=== PATIENT | male | born 1965 | race Caucasian/White ===

== ENCOUNTER 2016-11-19 12:10 | Inpatient (IN) | payer OTHER ==
[~2016-11-19 12:10] MED LIST: ACIDOPHILUS LA1 EACH PO; BENTYL20 MG PO; CARAFATE1 GM PO; CATAPRES0.1 MG PO; CYCLOBENZAPRIN7.5 MG PO; CYCLOBENZAPRINE10 MG PO; CYMBALTA60 MG PO; DIFLUCAN100 MG PO; DIFLUCAN200 MG PO; GABAPENTIN600 MG PO; GLUCOSE TEST S1 EACH ID; HUMALOG100 UNIT/1 SQ; HUMULIN R100 UNIT/1 SC; HUMULIN R100 UNIT/1 SQ; LANTUS100 UNIT/1 SC; LANTUS100 UNIT/1 SQ; LEVAQUIN750 MG PO; LOFIBRA54 MG PO; LORTAB 5-325 M1 EACH PO; METOCLOPRAMIDE10 MG PO; MOBIC15 MG PO; NEURONTIN600 MG PO; NOVOLIN 70100 UNIT/1 SQ; NOVOLIN R100 UNIT/1 SQ; OMEPRAZOLE20 MG PO; PHENERGAN25 M1 PO; PHENERGAN25 MG RC; PRILOSEC OTC20 MG PO; PROTONIX40 MG PO; REGLAN10 MG PO; TYLENOL325 MG PO; VASOTEC10 MG PO; VASOTEC2.5 MG PO; VASOTEC5 MG PO; VISTARIL25 MG PO; ZOFRAN4 MG PO
--- NOTE | 2016-11-20 03:23 | NUR ---
0200 changes to 0300 due to time seasonal time change.
--- NOTE | 2016-11-21 13:03 | NUR ---
0815- HERE TO SEE AND ASSESS PT AT THIS TIME. UPDATED ON PT CONDITION AND LAB VALUES. CT OF ABDOMEN AND PELVIS THIS AM. NOTIFIED MD OF ELEVATED B/P THIS AM WELL EDEMA TO BILAT UE AND HANDS. C/O EPIGASTRIC PAIN. NO N/V VOICED AT THIS TIME. N/O'S NOTED
--- NOTE | 2016-11-22 12:53 | NUR ---
0830- HERE TO SEE AND ASSESS PT AT THIS TIME. UPDATED ON PT CONDITION. NOTIFIED OF CONTINUED EDEMA TO BILAT ARMS IMPROVING WITH RIGHT BEING WORSE. PULSES POSITIVE. N/O'S FOR US RIGHT ARM R/O DVT. PT STATES EPIGASTRIC PAIN AT THIS TIME. STATES FEELING BETTER. WILL MONITOR
--- NOTE | 2016-11-23 13:33 | NUR ---
PATIENT TRANSFERRED FROM ICU TO ROOM 307-2. STABLE ALERT ORIENTED X3. NO ACUTE DISTRESS NOTED. PATIENT LUNG SOUNDS CLEAR VIA AUSCULTATION. NO COUGH NOTED. PATIENT REMAINS NPO FOR EGD PROCEDURE THIS AFTERNOON. PATIENT ORIENTED TO ROOM AND CALL LIGHT. PATIENT VERBALIZES UNDERSTANDING TO RING CALL LIGHT FOR STAFF ASSIST.
[2016-11-24] MEDS ORDERED: NOVOLIN 70100 UNIT/1 SQ (13:36)
[2016-11-24] MEDS ORDERED: VASOTEC20 MG PO (13:37)
[2016-11-24] MEDS ORDERED: NEURONTIN600 MG PO (13:37)
[2016-11-24] MEDS ORDERED: CYMBALTA60 MG PO (13:37)
[2016-11-24] MEDS ORDERED: METOCLOPRAMIDE10 MG PO (13:38)
[2016-11-24] MEDS ORDERED: PHENERGAN25 M1 PO (13:38)
[2016-11-24] MEDS ORDERED: PROTONIX40 MG PO (13:39)
[2016-11-24] MEDS ORDERED: PENICILLIN V P500 MG PO (13:39)
== END 2016-11-24 15:37 | disposition home or self-care (01) | DRG 638 ==
LOC: ER 12:10 → MED 16:15 → ICU 16:15 → MED 11-23 13:14
PROVIDERS: ADMIT Internal Medicine
PROC: 0DB38ZX Excision of Lower Esophagus, Via Natural or Artificial Opening Endoscopic, Diagnostic (ICD-10-PCS; principal; 2016-11-23)
DX: E10.10 Type 1 diabetes mellitus with ketoacidosis without coma (principal); N17.9 Acute kidney failure, unspecified; K92.2 Gastrointestinal hemorrhage, unspecified; K21.0 Gastro-esophageal reflux disease with esophagitis; B95.4 Other streptococcus as the cause of diseases classified elsewhere; G43.A0 Cyclical vomiting, in migraine, not intractable; I10 Essential (primary) hypertension; M19.90 Unspecified osteoarthritis, unspecified site; Z79.4 Long term (current) use of insulin; Z79.899 Other long term (current) drug therapy; F17.210 Nicotine dependence, cigarettes, uncomplicated; F12.10 Cannabis abuse, uncomplicated; Z83.3 Family history of diabetes mellitus; Z82.49 Family history of ischemic heart disease and other diseases of the circulatory system; Z82.3 Family history of stroke; Z85.828 Personal history of other malignant neoplasm of skin; Z89.422 Acquired absence of other left toe(s); E86.0 Dehydration; R10.13 Epigastric pain
CPT/HCPCS: 36415; 80307; 87651; 93306; J0360; J0696; J1650; J2550; J2704; J2765; J3370; J7050; Q9963

== ENCOUNTER 2016-11-19 12:10 | Emergency (ER) | payer OTHER | END 2016-11-19 16:14 | disposition critical access hospital (66) | LOC: ER 12:10 | DX: E13.10 Other specified diabetes mellitus with ketoacidosis without coma (principal); Z79.4 Long term (current) use of insulin; F17.210 Nicotine dependence, cigarettes, uncomplicated; Z79.899 Other long term (current) drug therapy | CPT/HCPCS: 36415; 36556; 96361; 96365; 96375; 96376; J0696; J2550 ==